=== PATIENT | female | born 1980 ===

== ENCOUNTER 2024-11-08 23:41 | Emergency (ER) | payer MEDICAID, OTHER, SELFPAY ==
[2024-11-08 23:49] VITALS: BP 125/69; PULSE 91; RESP 20; TEMP 36.6; O2SAT 98; BMI 27.6
--- NOTE | 2024-11-09 01:32 | ED_ITS ---
HPI - Eye Problem General Chief complaint: Eye Problems Stated complaint: pain in eyes Time Seen by Provider: 11/09/24 01:16 Source: patient Mode of arrival: ambulatory Limitations: no limitations History of Present Illness ED Provider: Dr. Nataliya Wise HPI Narrative: Patient comes to the emergency room complaining of right-sided eye pain for 3 days. Patient denies any trauma to her knowledge. Patient states that she has photophobia. No visual changes. Patient states that she has not had any discharge but her eyes very red. Denies using contact lenses. Patient denies history of glaucoma Related Data Previous Rx's ?Medication ?Instructions ?Recorded erythromycin 5 mg/gram (0.5 %) eye 0.5 inch ophthalmic (eye) TID #3.5 11/09/24 ointment grams ibuprofen 600 mg tablet 600 mg PO Q8H PRN pain #20 t abs 11/09/24 Allergies Allergy/AdvReac Type Severity Reaction Status Date / Time No Known Allergies Allergy Verified 11/08/24 23:54 Review of Systems Review of Systems: Constitutional : No Weight loss, No Fever, No Chills, No Night Sweats, No Fatigue, No Malaise ENT/Mouth : No Hearing loss, No Ear Pain, No Nasal Congestion, No Sinus Pain, No Hoarseness, No sore throat, No Rhinorrhea, No Swallowing Difficulty Eyes: Complaining of right-sided eye pain, redness, tearing, no trauma, denies visual changes Cardiovascular : No Chest Pain, No SOB, No Dyspnea on Exertion, No Orthopnea, No Edema, No Palpitations Respiratory : No Cough, No Sputum, No Wheezing, No Smoke Exposure, No Dyspnea Gastrointestinal : No Nausea, No Vomiting, No Diarrhea, No Constipation, No abdominal Pain, No Hematochezia, No Melena Genitourinary : no irregular bleeding, No Dysuria, No Urinary Frequency, No Hematuria, No Urinary Incontinence, No Urgency, No Flank Pain, No Urinary Flow Changes, No Hesitancy Musculoskeletal : No joint pain, No Myalgias, No Joint Swelling Skin : No Skin Lesions, No rash Neuro : No Weakness, No Numbness, No Paresthesias, No Loss of Consciousness, No Dizziness, No Headache Psych : No Anxiety/Panic, No Depression, No SI/HI/AH/VH, No Social Issues, Heme/Lymph: No Bruising, No Bleeding,No Lymphadenopathy Endocrine : No Polyuria, No Polydipsia, No Temperature Intolerance Physical Exam Exam: Exam: Appearance: Alert. Oriented X3. No acute distress. Eyes: Pupils equal, round and reactive to light. Right eye sclera erythematous, no discharge. With fluorescein test under Wood's lamp, there is a small 2 mm corneal scratch at the 6 o'clock position. Negative Cierra sign, eye pressure on the right, 16.5 mmHg, eye pressure in the left 18.9 mmHg ENT: Pharynx normal. Neck: Normal inspection. Neck supple. No lymph nodes noted. No crepitus CVS: Normal heart rate and rhythm. Pulses normal. Normal S1 and S2 Respiratory: No respiratory distress. Breath sounds normal. No Wheezing. No rales Abdomen: Soft and nontender. No rigidity. No distention. Skin: Skin warm and dry. Normal skin color. Normal skin turgor. Extremities: No lower extremity edema. No Lacerations. No Rash Neuro: Oriented X 3. No motor deficit. No sensory deficit. Moving all extremities. No slurred speech. CN 2 through 12 grossly intact Psych: calm, cooperative, normal affect Vital Signs: Vital Signs: Last Vital Signs Temp 97.8 F 11/08/24 23:49 Pulse 91 11/08/24 23:49 Resp 20 11/08/24 23:49 BP 125/69 11/08/24 23:49 Pulse Ox 98 11/08/24 23:49 O2 Del Method Room Air 11/08/24 23:49 BMI result Body Mass Index 27.6 Medical Decision Making Medical Decision Making MDM Narrative: I discussed the physical exam with the patient, patient has a corneal abrasion. Discharge Plan Discharge Clinical Impression: Corneal abrasion Patient Disposition: Home, Self-Care Instructions: Corneal Abrasion (ED) Additional Instructions: Please follow-up with your primary care physician tomorrow. If you have any worsening or new symptoms, please return to the emergency room or call 911 Prescriptions: New erythromycin 5 mg/gram (0.5 %) ointment 0.5 inch ophthalmic (eye) TID Qty: 3.5 0RF ibuprofen 600 mg tablet 600 mg PO Q8H PRN (Reason: pain) Qty: 20 0RF Print Language: Turkish
--- OUTSIDE RECORDS SUMMARY | 2024-11-09 01:51 | XMS_ITS | Encounter Summary ---
Author Organization [facility] Address [address] [place] [address] Care Team Providers Care Security Support Analyst Name Role Phone Unavailable Primary Care Provider Unavailabl e Reason for Visit * Reason Onset Date Comments appt 08/14/2023 Encounter Details Date Type Department Care Team (Late st Contact Info) Description 08/14/2023 Telephone [facility] [address], [place] [id number] Paulo, Tonia [address] [place] [address] appt Social History Tobacco Use Types Packs/Day Years Used Date Smoking Tobacco: Never Assessed Comments Unknown Sex and Gender Information Value Date Recorded Sex Assigned at Female 01/24/2022 10:27 AM EDT Legal Sex Female 10:27 AM EDT Gender Identity Female 01/24/2022 10:27 AM EDT Sexual Orientation Straight 01/24/2022 10 :27 AM EDT documented as of this encounter Miscellaneous Notes * Telephone Encounter - Bridgette Staples - 08/14/2023 11:48 AM EDT Patient would like appt scheduled 09/04 to be rs for a different date as children have an appt sameday * Telephone Encounter - Bridgette Staples - 08/14/2023 8:59 AM EDT Patient checking in on status of appt for cleaning and exam. documented in this encounter Plan of Treatment Not on file documented as of this encounter Visit Diagnoses Not on filedocumented in this encounter
[2024-11-09 02:09] VITALS: BP 125/69; PULSE 91; RESP 20; TEMP 36.6; O2SAT 98
== END 2024-11-09 02:10 | disposition home or self-care (01) ==
LOC: HO.ED 11-09 01:50
PROVIDERS: Emergency Provider Emergency Medicine; PCP Internal Medicine
DX: S05.01XA Injury of conjunctiva and corneal abrasion without foreign body, right eye, initial encounter (principal); H57.11 Ocular pain, right eye; H53.141 Visual discomfort, right eye; X58.XXXA Exposure to other specified factors, initial encounter; Y93.9 Activity, unspecified; Y92.9 Unspecified place or not applicable; Y99.8 Other external cause status
CPT/HCPCS: 99282; 99283